=== PATIENT | male | born 1955 | race Caucasian/White ===

== ENCOUNTER 2023-07-07 11:53 | Outpatient (RCR) | payer MEDICARE, MEDICAID, SELFPAY | END 2023-07-07 17:00 | disposition home or self-care (01) | LOC: HO.WCC 11:53 | PROVIDERS: PCP Internal Medicine; Referring Provider Internal Medicine; Visit Provider Physician Assistant | DX: L89.621 Pressure ulcer of left heel, stage 1 (principal); L89.611 Pressure ulcer of right heel, stage 1; R60.9 Edema, unspecified; F31.9 Bipolar disorder, unspecified; H54.8 Legal blindness, as defined in USA; Z79.899 Other long term (current) drug therapy | CPT/HCPCS: 99213 ==